=== PATIENT | female | born 1995 | race Caucasian/White ===

== ENCOUNTER 2019-06-13 11:04 | Emergency (ER) | payer MEDICAID ==
[~2019-06-13] VITALS: Ht 177.8 cm; Wt 158.8 kg
[2019-06-13 11:28] VITALS: BP 140/83
--- NOTE | 2019-06-13 12:35 | NUR ---
PT. VERBALIZED UNDERSTANDING OF AFTERCARE INSTRUCTIONS.Patient discharged to home in stable condition. Written and verbal after care instructions given. Patient verbalizes understanding of instruction.
== END 2019-06-13 12:35 | disposition home or self-care (01) ==
LOC: ER 11:10
DX: R04.0 Epistaxis (principal)